=== PATIENT | female | born 1995 | race Caucasian/White ===

== ENCOUNTER 2017-10-15 10:36 | Emergency (ER) | payer BC, MEDICAID ==
[~2017-10-15] VITALS: Ht 154.9 cm; Wt 58.0 kg
[~2017-10-15 10:36] MED LIST: CEPH250C2; SULF1TAB48
[2017-10-15 13:11] VITALS: BP 100/64
== END 2017-10-15 15:41 | disposition home or self-care (01) ==
LOC: ER 14:00
DX: N76.2 Acute vulvitis (principal)
CPT/HCPCS: 99283